=== PATIENT | female | born 1950 | race Caucasian/White ===

== ENCOUNTER → 2017-06-04 | Outpatient (CLI) | payer OTHER ==
[~2017-06-04] MED LIST: NS 100 ML IV 100 ML IV ONE
[2017-06-04 10:43] LABS: CREATININE 0.95 mg/dL (0.55-1.02)
--- NOTE | 2017-06-07 09:10 | CT ---
CT OF THE ABDOMEN AND PELVIS WITH CONTRAST HISTORY: Left lower quadrant pain. Diverticulitis. Comparison: None Technique: Multiple axial images of the abdomen and pelvis were obtained from the lung bases to the pubic symphy sis follow the administration of IV contrast. Dose reduction techniques including Automated Exposure Control (AEC) and adjustment of mA and kV were utlized. Findings: The heart is normal in size. There is no pericardial effusion. Lung bases are clear without focal con solidation, pleural effusion or pneumothorax. Liver and spleen are normal in size, enhancement characteristics and contour. No focal lesions. The p ortal vein is patent. No ductal dilitation. Gallbladder absent. The pancreas is unremarkable. Adrenal glands are normal. Kidneys enhance symmetrically without hydronephrosis or nephrolithiasis. No bowel obstruction or inflammation. Normal appendix. No abnormal appearing mesenteric or retroperit osborne lymph nodes. No free fluid or fluid collections. No evidence of diverticulitis. The bladder is normal in appearance. Status post hysterectomy. No free fluid or abnormal pelvic lymph nodes. No aggressive osseous lesions. IMPRESSION: 1. No source of patient's left lower quadrant pain is identified on this examination. Reported By:
== END ==
LOC: RAD 10:08
PROVIDERS: ATTEND Internal Medicine
DX: R10.0 Acute abdomen (principal); K57.32 Diverticulitis of large intestine without perforation or abscess without bleeding; R10.32 Left lower quadrant pain
CPT/HCPCS: 36415; 74177; 82565; 84520; A4222

== ENCOUNTER 2018-02-22 09:55 | Day surgery (SDC) | payer OTHER ==
[2018-02-22] MEDS ORDERED: VIGAMOX 0.5% OPHTH 1 DOSE AFFEYE ONE ×5 (10:12→13:35)
[2018-02-22] MEDS ORDERED: TETRACAINE 0.5% OPHTH 1 DOSE AFFEYE ONE ×4 (10:15→13:24)
[2018-02-22] MEDS ORDERED: NS 500 ML IV 500 ML IV ONE (10:22)
[2018-02-22] MEDS ORDERED: PROLENSA OPHTH 1 DOSE AFFEYE ONE (10:22)
[2018-02-22] MEDS ORDERED: ALPHAGAN-P OPHTH 1 DOSE AFFEYE ONE (10:23)
[2018-02-22] MEDS ORDERED: CYCLOGYL 1% OPHTH 1 DOSE OP ONE ×3 (10:24→10:30)
[2018-02-22] MEDS ORDERED: AK-DILATE 2.5% OPHTH 1 DOSE OP ONE ×3 (10:25→10:31)
[2018-02-22] MEDS ORDERED: MYDRIACIL OPHTH 1 DOSE AFFEYE ONE ×3 (10:26→10:32)
[2018-02-22] MEDS: TETRACAINE 0.5% OPHTH 1 DOSE AFFEYE ONE ×2 (12:32→13:02)
[2018-02-22] MEDS: VERSED ONE ×2 (12:59→13:03)
[2018-02-22] MEDS ORDERED: BETADINE OPHTH SOLN 5% EACHEYE ONE (13:14)
[2018-02-22] MEDS ORDERED: BSS OPHTH (PLAIN) 500 ML with VANCOMYCIN HCL 500 MG VIAL 25 MG, ADRENALINE CHL INJ 1 MG IR ONE ×6 (13:15)
[2018-02-22] MEDS ORDERED: ADRENALINE CHL INJ IJ ONE ×2 (13:15→13:24)
[2018-02-22] MEDS ORDERED: DUOVISC IO ONE ×2 (13:15→13:24)
[2018-02-22] MEDS ORDERED: XYLOCAINE-MPF 1% IJ ONE ×2 (13:15→13:24)
[2018-02-22 15:05] VITALS: BP 146/70
== END 2018-02-22 13:55 | disposition home or self-care (01) ==
LOC: SURG1 09:55
PROVIDERS: ATTEND Ophthalmology
PROC: 08DK3ZZ Extraction of Left Lens, Percutaneous Approach (ICD-10-PCS; principal; 2018-02-22 13:45)
PROC: 08RK3JZ Replacement of Left Lens with Synthetic Substitute, Percutaneous Approach (ICD-10-PCS; principal; 2018-02-22 13:45)
DX: H25.12 Age-related nuclear cataract, left eye (principal); H25.012 Cortical age-related cataract, left eye; H25.042 Posterior subcapsular polar age-related cataract, left eye; H52.222 Regular astigmatism, left eye
CPT/HCPCS: 99100; A4217; J0170; J2250; J3370